=== PATIENT | female | born 1945 | race Caucasian/White ===

== ENCOUNTER → 2017-01-30 | Outpatient (CLI) | payer MEDICARE ==
--- NOTE | 2017-01-31 08:50 | RAD ---
DATE: 01/31/2017 EXAM: MAMMO ZHENG SCREENING BILATERAL HISTORY: 71-year-old female for routine screening. History of left breast biopsy with benign pathology longtime ago. COMPARISON: Mammogram from 2015, 2014 and 2013 This study was interpreted with the benefit of Computerized Aided Detection (CAD). FINDINGS: Breast Density: FATTY The Breast Parenchyma is primarily fatty replaced. Breast parenchyma level density A.. There are no suspicious calcifications, spiculated masses or architectural distortion. Scattered bilateral benign calcifications. IMPRESSION: No suspicious findings. BI-RADS CATEGORY: 2 BENIGN FINDING(S) RECOMMENDED FOLLOW-UP: 12M 12 MONTH FOLLOW-UP PQRS compliance statement: Patient information was entered into a reminder system with a target due date 01/31/2018 for the next mammogram. Mammography is a sensitive method for finding small breast cancers, but it does not detect them all and is not a substitute for careful clinical examination. A negative mammogram does not negate a clinically suspicious finding and should not result in delay in biopsying a clinically suspicious abnormality. "Our facility is accredited by the [employer] Mammography Program."
== END | disposition home or self-care (01) ==
LOC: MAMMO 13:59
PROVIDERS: ATTEND Family Medicine
DX: Z12.31 Encounter for screening mammogram for malignant neoplasm of breast (principal)
CPT/HCPCS: 77063; G0202; 77067

== ENCOUNTER → 2019-03-19 | Outpatient (CLI) | payer MEDICARE ==
--- NOTE | 2019-03-21 08:46 | RAD ---
DATE: 03/19/2019 1:25 PM EXAM: MAMMO ZHENG SCREENING BILATERAL HISTORY: routine screening evaluation. COMPARISON: 01/30/2017, 09/20/2015 Bilateral CC and MLO views of the breasts were performed. Bilateral breast tomosynthesis was performed in CC and MLO projections. This study was interpreted with the benefit of Computerized Aided Detection (CAD). FINDINGS: Breast Density: SCATTERED The breast parenchyma shows scattered fibroglandular densities. Breast parenchyma level B Benign calcifications are present. Approximately 8 cm from the nipple in the medial, slightly inferior right breast there is a 5 mm nodule with slightly irregular margins. No suspicious right breast mass calcification or architectural distortion. No suspicious masses, microcalcifications or architectural distortion is present to suggest malignancy in the left breast. The visualized axillae are unremarkable. IMPRESSION: Right breast mass, findings for which additional imaging is advised. BI-RADS CATEGORY: 0 INCOMPLETE: NEEDS ADDITIONAL IMAGING EVALUATION AND/OR PRIOR MAMMOGRAMS FOR COMPARISON. RECOMMENDED FOLLOW-UP: ADD ADDITIONAL IMAGING. Additional imaging of the right breast to include spot compression views and ultrasound. PQRS compliance statement: Patient information was entered into a reminder system with a target due date for the next mammogram. Mammography is a sensitive method for finding small breast cancers, but it does not detect them all and is not a substitute for careful clinical examination. A negative mammogram does not negate a clinically suspicious finding and should not result in delay in biopsying a clinically suspicious abnormality. "Our facility is accredited by the [employer] Mammography [employer]."
== END | disposition home or self-care (01) ==
LOC: MAMMO 13:17
PROVIDERS: ATTEND Family Medicine
DX: Z12.31 Encounter for screening mammogram for malignant neoplasm of breast (principal); N64.89 Other specified disorders of breast
CPT/HCPCS: 77063; 77067

== ENCOUNTER → 2019-03-28 | Outpatient (CLI) | payer MEDICARE ==
--- NOTE | 2019-03-28 15:22 | RAD ---
DATE: 03/28/2019 EXAM: DIGITAL DIAGNOSTIC RT, BREAST RIGHT HISTORY: Abnormal mammogram COMPARISON: 07/31/2014, 09/20/2015, 01/30/2017, and 03/19/2019 screen mammographic exams This study was interpreted with the benefit of Computerized Aided Detection (CAD). Breast Density: SCATTERED The breast parenchyma shows scattered fibroglandular densities. Breast parenchyma level B. FINDINGS: Persistence of a small mass involving the right lower inner breast is noted on spot compression in the CC and MLO projections. Limited ultrasound imaging of the right lower inner quadrant was performed. Mass is not definitely delineated on this examination when scanning between 2:00 to 6:00 region. IMPRESSION: Right lower inner breast mass persists on spot compression with no suspicious corresponding ultrasound finding. This mass lesion appears to have a corresponding finding in prior exams without significant change however. BI-RADS CATEGORY: 2 BENIGN FINDING(S) RECOMMENDED FOLLOW-UP: 12M 12 MONTH FOLLOW-UP PQRS compliance statement: Patient information was entered into a reminder system with a target due date for the next mammogram. Mammography is a sensitive method for finding small breast cancers, but it does not detect them all and is not a substitute for careful clinical examination. A negative mammogram does not negate a clinically suspicious finding and should not result in delay in biopsying a clinically suspicious abnormality. "Our facility is accredited by the [employer] Mammography Program."
== END | disposition home or self-care (01) ==
LOC: MAMMO 14:08
PROVIDERS: ATTEND Family Medicine
DX: N63.14 Unspecified lump in the right breast, lower inner quadrant (principal)
CPT/HCPCS: 76641; 77065

== ENCOUNTER → 2020-05-26 | Outpatient (CLI) | payer MEDICARE ==
--- NOTE | 2020-05-31 13:06 | RAD ---
DATE: 05/26/2020 1:30 PM EXAM: MAMMO ZHENG SCREENING BILATERAL HISTORY: Screening . Patient reports a remote history of a left breast benign biopsy. There is a family history of a first-degree relative (sister) with breast cancer, unspecified age. COMPARISON: 03/19/2019, 01/30/2017 bilateral mammograms, Limited right breast ultrasound and right diagnostic mammogram of 03/28/2019 Bilateral CC and MLO views of the breasts were performed. Bilateral breast tomosynthesis was performed in CC and MLO projections. This study was interpreted with the benefit of Computerized Aided Detection (CAD). FINDINGS: Breast Density: FATTY The Breast Parenchyma is primarily fatty replaced. Breast parenchyma level density A. Negative left mammogram. An 8mm oval mass with spiculated margins in the medial middle third right breast cannot be confirmed stable. It is best seen on image 38 of 81 on the CC tomographic series, and on image 44 of 94 on the MLO tomographic series. It needs additional imaging with full-field lateral view, preferably with 3-D technique and targeted medial right breast ultrasound. If not visible on ultrasound, it may be amenable to stereotactic biopsy if additional mammographic views confirm suspicious features. IMPRESSION: Right breast mass, findings for which additional imaging is advised. BI-RADS CATEGORY: 0 INCOMPLETE: NEEDS ADDITIONAL IMAGING EVALUATION AND/OR PRIOR MAMMOGRAMS FOR COMPARISON. RECOMMENDED FOLLOW-UP: ADD ADDITIONAL IMAGING The patient will be contacted to return for additional imaging and a supplemental report will follow. PQRS compliance statement: Patient information was entered into a reminder system with a target due date for the next mammogram. Mammography is a sensitive method for finding small breast cancers, but it does not detect them all and is not a substitute for careful clinical examination. A negative mammogram does not negate a clinically suspicious finding and should not result in delay in biopsying a clinically suspicious abnormality. "Our facility is accredited by the [employer] Mammography [employer]."
== END ==
LOC: MAMMO 13:15
PROVIDERS: ATTEND Family Medicine
DX: Z12.31 Encounter for screening mammogram for malignant neoplasm of breast (principal); N63.10 Unspecified lump in the right breast, unspecified quadrant
CPT/HCPCS: 77063; 77067

== ENCOUNTER → 2020-06-09 | Outpatient (CLI) | payer MEDICARE ==
--- NOTE | 2020-06-09 16:01 | RAD ---
Examination: 1. Right digital diagnostic mammogram. 2. Limited right breast ultrasound. INDICATION: Screening recall for medial right breast mass. COMPARISON: 05/26/2020, right diagnostic mammogram of 03/28/2019 TECHNIQUE: Spot compression views of the right breast in the CC and MLO projections were obtained in addition to fulfill right ML view which was reviewed with computer-aided detection. Targeted ultrasou nd of the medial right breast was performed in addition to ultrasound of the right axilla. FINDINGS: The breast is almost entirely fatty replaced. The mass recalled from screening measuring approximately 8 mm on mammography persists on additional v iews as an oval isodense mass with irregular margins. This is at the approximate 3:00 position 8 cm f rom the nipple. Targeted ultrasound of the medial right breast showed no clear sonographic correlate to the mammograp hic finding recalled from screening. IMPRESSION: Suspicious 8 mm mass in the medial middle third right breast at the approximate 3:00 position 8 cm fr om the nipple, best seen on mammography. BI-RADS Category 4 Findings suspicious for malignancy Recommend stereotactic right breast biopsy of the medial middle third 8 mm breast mass. Findings and recommendations telephoned to Dr. Cha's office where Bennie Sifuentes took the telephone report on his behalf at 10:22 AM on 06/09/2020 Electronically signed by: Galina Noland MD (06/09/2020 3:59 PM) [id number]
== END ==
LOC: MAMMO 09:06
PROVIDERS: ATTEND Family Medicine
DX: R92.2 Inconclusive mammogram (principal)
CPT/HCPCS: 76641; 77065

== ENCOUNTER → 2021-03-21 | Outpatient (CLI) | payer MEDICARE ==
--- NOTE | 2021-03-25 12:38 | RAD ---
EXAM: BILATERAL DIGITAL 3-D DIAGNOSTIC MAMMOGRAPHY. HISTORY: Personal history of right breast cancer status post breast conservation therapy and radiatio n. TECHNIQUE: Bilateral full field digital images were obtained in CC and MLO projections with tomosynth esis. Computer-aided detection was applied. COMPARISON: 06/09/2020, 05/26/2020. COMPOSITION: B. There are scattered areas of fibroglandular density. FINDINGS: A new density superiorly on the right MLO view Post breast conservation therapy changes are noted inferomedially on the right. Diffuse interstitial edema and skin thickening on the right is consistent with postradiation change. A new density superio rly on the right MLO view is likely secondary to a skin fold and resolves to parenchymal density on s pot compression. Coarse and scattered calcifications bilaterally appear benign. There are no suspicio us masses, microcalcifications or architectural distortion. BI-RADS CATEGORY 2: Benign. RECOMMENDATION: 1. Ongoing clinical follow-up and surveillance mammography in one year. If mammography demonstrates dense breast tissue (heterogenously dense or extremely dense, category C or D), which could hide abnormalities, and if other risk factors for breast cancer have been identifi ed, supplemental screening tests that may be suggested by the ordering physician may be of benefit. D ense breast tissue, in and of itself, is a relatively common condition. Therefore, this information i s not provided to cause undue concern, but rather to raise awareness and to promote discussion with t he referring physician regarding the presence of other risk factors, in addition to dense breast tiss ue. The results of this mammography examination is provided to the patient and referring physician. T he patient should contact their referring physician if any questions or concerns exist regarding this report. PQRS compliance statement - Patient information was entered into a reminder system with a target due date for the next mammogram. "Our facility is accredited by the [employer] Mammography [employer]." Electronically signed by: René Gray MD (03/25/2021 12:35 PM) [id number]
== END ==
LOC: MAMMO 14:41
PROVIDERS: ATTEND Physician Assistant
DX: C50.811 Malignant neoplasm of overlapping sites of right female breast (principal)
CPT/HCPCS: 77066; G0279; 77062